=== PATIENT | female | born 1960 | race Caucasian/White ===

== ENCOUNTER → 2018-04-24 14:48 | Outpatient (CLI) | payer SELFPAY ==
--- NOTE | 2018-04-24 | MISC_PTH ---
PATIENT: ISI GOLD LOC: [facility] U#:[id number] AGE/SX: 65/F ROOM: RE04/24/[address]: Dr. Tomy Silver DDS : 1960 BED: DIS: SPEC #: [id number] RECD: 04/24/18 14:25 STATUS: ROXIE PELAEZ #: [id number] TOÑO: 04/24/18 00:[address]: Tomy Silver DEPT: SURGICAL PATHOLOGY RECD BY: Bipin Tilley ENTERED: 04/25/18 11:39 SP TYPE: MISC OTHR DR: Shadia Primary Care Phys Tissues: Oral soft tissues, NOS Procedures: Special Stain Group I Surgery Specimen Level IV AFB Stain (control) GMS Stain (control) HEADER OPERATION: Biopsy of gum tissue PRE-OP DIAGNOSIS: Irritated chronically, specimen was removed 8 months ago TISSUE SUBMITTED: Gingival tissue around lower molar MICROSCOPIC DIAGNOSIS Gingival tissue around lower molar, biopsy: Lichenoid gingivitis with focal acute inflammation. Negative for acid-fast bacilli and fungal organisms. AM:starla 04/28/18 COMMENT Sections show acanthosis with focal parakeratosis and hyperkeratosis. A lichenoid band of inflammation consisting primarily of small lymphocytes is present in the superficial subepithelial region. Immunohistochemistry ([id number]) reveals this infiltrate consists of polytypic lymphocytes. There is no evidence of malignancy. Clinical correlation is suggested. Case has been reviewed in consultation with Dr. Leon who concurs with the above diagnosis. IDC:LILLI MICROSCOPIC DESCRIPTION Slides are reviewed. GROSS DESCRIPTION Received in fixative is one container labeled with the patient's name and designated 31 area. The specimen consists of a piece of lee mucosal tissue measuring 0.5 x 0.5 x 0.2 cm. The entire specimen is submitted in one cassette. / LILLI:starla 04/25/18 TC:3 CPT: 76073, 00618 x2
--- NOTE | 2018-04-24 | IMM_PTH ---
PATIENT: ISI GOLD LOC: [facility] U#:[id number] AGE/SX: 65/F ROOM: RE04/24/[address]: Dr. Tomy Silver DDS : 1960 BED: DIS: SPEC #: [id number] RECD: 04/28/18 10:54 STATUS: ROXIE REEarline #: [id number] TOÑO: 04/24/18 00:[address]: Tomy Silver DEPT: IMMUNOHISTOCHEMISTRY RECD BY: Rina Caldwell ENTERED: 04/28/18 10:55 SP TYPE: IMMUNO OTHR DR: No Primary Care Phys Tissues: Gum, NOS Procedures: CD138 (add) CD20 (add) CD45 (add) CD5 (add) CD79A (add) CD3 (initial) PHYSICIAN & INSTITUTION [address] [address] SPECIMEN INFORMATION: Tissue Source: Biopsy of gum tissue Clinical Info: Irritated chronically Specimen Number: [id number] CPT code: 63928, 85115 x5 METHODOLOGY: Deparaffinized sections of prefer/formalin-fixed tissue or PAP/DQ stained slides are incubated with monoclonal/polyclonal antibodies/oligonucleotide probes. Localization is made via biotin free immunoperoxidase method. Appropriate controls are performed and reacted as expected. Results on target cell population are indicated in the following table: RESULTS: ANTIBODY / CLONE RESULT CD3 (PS1) positive CD5 (SP10) positive CD20 (L26) positive, focal CD45 (RP2/18) positive CD79a (11E3) positive, focal CD138 (B-A38) positive, focal These tests were developed and their performance characteristics determined by [facility]. They may not have been cleared or approved by the U.S. Food and Drug Administration. The FDA has determined that such clearance or approval is not necessary. INTERPRETATION: Biopsy of gum tissue: Lichenoid inflammation. No evidence of lymphoproliferative disorder. AM:starla 04/30/18
== END ==
PROVIDERS: Visit Provider Dentist Oral and Maxillofacial Surgery
DX: K05.10 Chronic gingivitis, plaque induced (principal)
CPT/HCPCS: 88305; 88312; 88341; 88342

== ENCOUNTER → 2020-03-09 12:44 | Outpatient (CLI) | payer SELFPAY ==
--- NOTE | 2020-03-09 | IMM_PTH ---
PATIENT: ISI GOLD LOC: [facility] U#:[id number] AGE/SX: 65/F ROOM: RE03/09/[address]: Dr. Tomy Silver DDS : 1960 BED: DIS: SPEC #: [id number] RECD: 03/10/20 11:37 STATUS: MINALAric REEarline #: [id number] TOÑO: 03/09/20 00:[address]: Tomy Silver DEPT: IMMUNOHISTOCHEMISTRY RECD BY: Rina Caldwell ENTERED: 03/10/20 11:38 SP TYPE: IMMUNO OTHR DR: No Primary Care Phys Tissues: A - Cheek, NOS B - Cheek, NOS Procedures: p16 (initial) PHYSICIAN & INSTITUTION [place] [address] SPECIMEN INFORMATION: Tissue Source: A - Tissue right cheek, B - Tissue right cheek Clinical Info: Rule out SCCA Specimen Number: [id number] A & B CPT code: 86363 x2 METHODOLOGY: Deparaffinized sections of prefer/formalin-fixed tissue or PAP/DQ stained slides are incubated with monoclonal/polyclonal antibodies/oligonucleotide probes. Localization is made via biotin free immunoperoxidase method. Appropriate controls are performed and reacted as expected. Results on target cell population are indicated in the following table: RESULTS: ANTIBODY / CLONE RESULT Block A P16 (E6H4) negative Block B P16 (E6H4) negative These tests were developed and their performance characteristics determined by [facility]. They may not have been cleared or approved by the [place].S. Food and Drug Administration. The FDA has determined that such clearance or approval is not necessary. The above immunohistochemical/dualISH markers are ordered and reviewed by the Pathologist. INTERPRETATION: A. Tissue right cheek: Invasive squamous cell carcinoma. B. Tissue right cheek: Invasive squamous cell carcinoma. See comment. LILLI:starla 03/11/20 Comment: Overlying uninvolved epithelium shows focal patchy positive staining.
--- NOTE | 2020-03-09 | MISC_PTH ---
PATIENT: ISI GOLD LOC: [facility] U#:[id number] AGE/SX: 65/F ROOM: RE03/09/[address]: Dr. Tomy Silver DDS : 1960 BED: DIS: SPEC #: [id number] RECD: 03/09/20 12:46 STATUS: ROXIE BENIGNO #: [id number] TOÑO: 03/09/20 00:[address]: Tomy Silver DEPT: SURGICAL PATHOLOGY RECD BY: Harris Watson ENTERED: 03/09/20 12:47 SP TYPE: MISC LONNY DR: No Primary Care Phys Tissues: A - Cheek, NOS B - Cheek, NOS Procedures: Surgery Specimen Level IV HEADER OPERATION: Biopsy PRE-OP DIAGNOSIS: Rule out SCCA TISSUE SUBMITTED: A - #1, B - #2 MICROSCOPIC DIAGNOSIS A. 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 Perineural invasion is not seen. See comment. B. Tissue right cheek, biopsy: Invasive moderately differentiated squamous cell carcinoma. Perineural invasion is not seen. See comment. SJ:rg 03/10/20 COMMENT A & B. Immunohistochemistry ([id number]) for surrogate HPV marker (p16) will be performed and results will be reported separately. Please make reference to previous specimens ([id number]) right posterior mandible, biopsy with diagnosis of mildly hyperplastic mucosa with associated acute and chronic inflammation and ([id number]) gingival tissue around lower molar, biopsy with diagnosis of lichenoid gingivitis wit focal acute inflammation. Slides are reviewed again. Case has been reviewed in consultation with Dr. Martinez who concurs with the above diagnosis. IDC:AM MICROSCOPIC DESCRIPTION Slides are reviewed. GROSS DESCRIPTION A - Received in fixative is one container labeled with the patient's name and designated tissue right cheek. The specimen consists of an irregular piece of lee mucosal tissue measuring 1.5 x 1 x 0.3 cm. The specimen is inked and submitted entirely in one cassette. It will be sectioned at the time of embedding. B - Received in fixative is one container labeled with the patient's name and designated tissue right cheek. The specimen consists of a piece of lee mucosal tissue measuring 1 x 0.6 x 0.3 cm. The specimen is inked and submitted entirely in one cassette. It will be sectioned at the time of embedding. / SJ:rg 03/09/20 TC:0 CPT: 99020 x2 ADDENDUM ADDENDUM ADDENDUM ADDENDUM ADDENDUM ADDENDUM ADDENDUM ADDENDUM ADDENDUM ADDENDUM ADDENDUM ADDENDUM 03/30/2020 11:21 ADDENDUM 03/30/2020 11:21 ADDENDUM 03/30/2020 11:21 ADDENDUM 03/30/2020 11:21 ADDENDUM 03/30/2020 11:21 This addendum is added to incorporate an outside pathology consultation report. The case was examined at [facility] (#[id number]) and the following diagnosis was rendered. A. Tissue, right cheek, biopsy: Invasive moderately differentiated squamous cell carcinoma. B. Tissue, right cheek, biopsy: Invasive moderately differentiated squamous cell carcinoma. Please see complete above mentioned consultation report in EMR
== END ==
PROVIDERS: Referring Provider Dentist Oral and Maxillofacial Surgery; Visit Provider Dentist Oral and Maxillofacial Surgery
DX: C76.0 Malignant neoplasm of head, face and neck (principal); Z91.19 Patient's noncompliance with other medical treatment and regimen
CPT/HCPCS: 88305; 88342